=== PATIENT | female | born 2000 | race Caucasian/White ===

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

== ENCOUNTER 2021-05-30 22:05 | Emergency (ER) | payer SELFPAY ==
[~2021-05-30] VITALS: Ht 177.8 cm; Wt 77.3 kg
[2021-05-30 22:11] VITALS: TEMP 98.2
[2021-05-30 23:21] VITALS: BP 137/72; PULSE 76
== END 2021-05-30 23:21 | disposition home or self-care (01) ==
LOC: COL.ER 22:05
DX: S61.412A Laceration without foreign body of left hand, initial encounter (principal); W26.0XXA Contact with knife, initial encounter; Y92.009 Unspecified place in unspecified non-institutional (private) residence as the place of occurrence of the external cause